=== PATIENT | male | born 1940 | race Caucasian/White ===

== ENCOUNTER 2022-07-02 06:53 | Day surgery (SDC) | payer MEDICARE, BC ==
[2022-07-01 11:22] LABS: BASOPHILS % (AUTO) 0.1 % (0-1); EOSINOPHILS # (AUTO) 0.1 X10'3 (0-0.9); EOSINOPHILS % (AUTO) 0.9 % (0-6); HEMATOCRIT 45.7 % (42.0-52.0); HEMOGLOBIN 15.7 g/dl (14.0-17.9); LYMPHOCYTES # (AUTO) 1.5 X10'3 (1.1-4.8); LYMPHOCYTES % (AUTO) 24.4 % (21-51); MEAN CORPUSCULAR HEMOGLOBIN 33.1 PG (27.0-31.0); MEAN CORPUSCULAR HGB CONC 34.5 g/dL (33.0-36.5); MEAN CORPUSCULAR VOLUME 96.2 FL (78-98); MEAN PLATELET VOLUME 8.4 FL (7.4-10.4); MONOCYTES # (AUTO) 0.3 X10'3 (0-0.9); MONOCYTES % (AUTO) 5.7 % (2-12); NEUTROPHILS # (AUTO) 4.2 X10'3 (1.8-7.7); NEUTROPHILS % (AUTO) 68.9 % (42-75); PLATELET COUNT 247 X10'3 (140-440); RED BLOOD COUNT 4.75 X10'6 (4.70-6.10); WHITE BLOOD COUNT 6.1 X10'3 (4.5-11.0)
[2022-07-01 11:31] LABS: APTT 27 SECONDS (22-32)
[2022-07-01 11:33] LABS: ALANINE AMINOTRANSFERASE 29 U/L (12-78); ALBUMIN/GLOBULIN RATIO 1.1 (1.1-1.5); ALKALINE PHOSPHATASE 84 IU/L (46-116); ANION GAP 9 (8-16); ASPARTATE AMINO TRANSFERASE 27 U/L (10-37); BLOOD UREA NITROGEN 26 MG/DL (7-18); BUN/CREATININE RATIO 19.7 (5.4-32.0); CALCIUM 8.9 MG/DL (8.5-10.1); CHLORIDE 107 MMOL/L (99-107); CREATININE 1.32 MG/DL (0.60-1.10); GLUCOSE 187 MG/DL (70-104); POTASSIUM 4.6 MMOL/L (3.5-5.1); SODIUM 144 MMOL/L (135-145); TOTAL CARBON DIOXIDE 27.6 MMOL/L (24-32); TOTAL PROTEIN 7.5 G/DL (6.4-8.2); eGFR 52 ML/MIN
[2022-07-02] VITALS (19 sets, daily range): BP systolic 125–205; BP diastolic 55–105
[~2022-07-02] VITALS: Ht 185.4 cm; Wt 77.2 kg
[2022-07-02] MEDS ORDERED: nitroGLYCERIN 0.4mg SUBLingual tab SL PRN ×2 (07:20→13:05)
[2022-07-02] MEDS ORDERED: diphenhydrAMINE 25mg capsule PO PRN (07:20)
[2022-07-02] MEDS ORDERED: SILD100T PO (07:34)
[2022-07-02] MEDS ORDERED: ATOR10TA70 PO (07:34)
[2022-07-02] MEDS ORDERED: LOSA100T57 PO (07:34)
[2022-07-02] MEDS ORDERED: ASPI-1071 PO (07:34)
--- NOTE | 2022-07-02 08:13 | NUR ---
Phoned [facility] spoke to Karrie HERNANDEZ to notify Dr. Eller of elevated BP.
[2022-07-02 08:14] LABS: HEMOGLOBIN A1C 5.9 % (4.5-6.2)
--- NOTE | 2022-07-02 08:15 | NUR ---
plant and maintenance technician at bedside, carotid US in progress.
--- NOTE | 2022-07-02 08:35 | NUR ---
Received order for Losartan from Dr. Elelr.
--- NOTE | 2022-07-02 08:40 | NUR ---
Pt to CT scan via WC
[2022-07-02] MEDS ORDERED: losartan 50mg tablet PO SCH (08:45)
--- NOTE | 2022-07-02 08:50 | NUR ---
Pt returned fro CT scan.
[2022-07-02] MEDS: LORazepam 0.5 MG tablet PO PRN ×2 (10:08→10:11)
[2022-07-02] MEDS ORDERED: LIDOcaine 1%/PF 5ML 10 MG/ML VIAL ONE (10:35)
[2022-07-02] MEDS ORDERED: midazolam 1 mg/ML 2ml injection ONE ×2 (10:35→11:48)
[2022-07-02] MEDS ORDERED: iohexol 350MG/ML 100ml bottle IV ONE ×4 (10:36→12:02)
[2022-07-02] MEDS ORDERED: fentaNYL/PF 50MCG/1 ML 2ML syringe ONE ×2 (10:36→11:50)
[2022-07-02] MEDS ORDERED: hydrALAZINE 20mg/ml inj. IV ONE ×2 (11:17→12:28)
[2022-07-02] MEDS ORDERED: nitroGLYCERIN-Tridil 50MG/D5W 250 ML IV ONE (11:56)
[2022-07-02] MEDS ORDERED: proCHLORperazine 10 MG/2 ml inj IV PRN (13:05)
[2022-07-02] MEDS ORDERED: ondansetron/PF 4mg/2ml inj IV PRN (13:05)
[2022-07-02] MEDS ORDERED: HYDROcodone/acetaminophen 5mg/325mg tablet PO PRN (13:05)
[2022-07-02] MEDS ORDERED: normal saline 1000ml 1,000 ML IV SCH (13:05)
[2022-07-02] MEDS ORDERED: HYDROcodone/acetaminophen 10/325mg tab PO PRN (13:05)
[2022-07-02] MEDS ORDERED: OXAZEpam 15mg capsule PO PRN (13:05)
--- NOTE | 2022-07-02 16:20 | NUR ---
Dr. Eller notified of continued elevated BP. No new orders received.
--- NOTE | 2022-07-02 18:30 | NUR ---
Oliver cath DC without problems.
--- NOTE | 2022-07-02 18:30 | NUR ---
Pt C/O WEBSTER, norco given.
--- NOTE | 2022-07-02 18:45 | NUR ---
Pt amb to rest room trying to void in toilet post luong cath DC
--- NOTE | 2022-07-02 19:30 | NUR ---
Dr. Eller notified of pt feeling dizzy, and C/O WEBSTER norco given. No new orders received. Dr. Eller offered for pt to go home or to be admitted by hospitalist. Pt wants to go home.
--- NOTE | 2022-07-02 19:40 | NUR ---
Pt able to void and have BM in toilet. States feels better and wants to go home. RN and assisted pt to get dressed. Pt slightly unsteady on feet, needs contact guard assist to get dressed. PIV DC cath intact. Right groin site stable dressing CD&I. VSS. Transferred to private car via WC with all belongings. Pt able to transfer to car with hand hold assist.
== END 2022-07-02 20:00 | disposition home or self-care (01) ==
LOC: SSTAY O 06:53
PROVIDERS: ATTEND Internal Medicine Cardiovascular Disease
DX: I25.10 Atherosclerotic heart disease of native coronary artery without angina pectoris (principal); I25.119 Atherosclerotic heart disease of native coronary artery with unspecified angina pectoris; I25.82 Chronic total occlusion of coronary artery; I25.719 Atherosclerosis of autologous vein coronary artery bypass graft(s) with unspecified angina pectoris; I10 Essential (primary) hypertension; E78.5 Hyperlipidemia, unspecified; I73.9 Peripheral vascular disease, unspecified; Z79.899 Other long term (current) drug therapy; R00.1 Bradycardia, unspecified; Z86.73 Personal history of transient ischemic attack (TIA), and cerebral infarction without residual deficits; G31.89 Other specified degenerative diseases of nervous system
CPT/HCPCS: 36415; 70450; 71046; 80053; 83036; 83880; 84484; 85025; 85610; 85730; 93005; 93459; 93567; 93880; 99152; 99153; C1760; C1769; J0360; J1644; J2250; J2405; J3010; J3490; J7030; Q9967; A4314; A6258; C1751